=== PATIENT | male | born 1950 | race Caucasian/White ===

== ENCOUNTER 2019-02-19 08:16 | Day surgery (SDC) | payer MEDICARE, OTHER ==
[~2019-02-19] VITALS: Ht 177.8 cm; Wt 92.5 kg
[~2019-02-19 08:16] MED LIST: ASPIRIN81 MG PO; FISH OIL1000 MG PO; MULTI VIT PO
[2019-02-19 10:10] VITALS: BP 100/67
== END 2019-02-19 10:20 | disposition home or self-care (01) ==
LOC: ENDO 08:16
PROVIDERS: ATTEND Internal Medicine Gastroenterology
PROC: 0DBP8ZX Excision of Rectum, Via Natural or Artificial Opening Endoscopic, Diagnostic (ICD-10-PCS; principal; 2019-02-19)
PROC: 0DBN8ZX Excision of Sigmoid Colon, Via Natural or Artificial Opening Endoscopic, Diagnostic (ICD-10-PCS; 2019-02-19)
DX: Z12.11 Encounter for screening for malignant neoplasm of colon (principal); D12.5 Benign neoplasm of sigmoid colon; K62.1 Rectal polyp; K57.30 Diverticulosis of large intestine without perforation or abscess without bleeding; K64.4 Residual hemorrhoidal skin tags; K64.8 Other hemorrhoids